=== PATIENT | female | born 1950 | race Caucasian/White ===

== ENCOUNTER 2020-01-06 00:01 | Outpatient (CLI) | payer OTHER, SELFPAY ==
[2020-01-06 18:56] LABS: SARS-CoV-2 RNA PCR Negative
== END 2020-01-06 00:02 | disposition home or self-care (01) ==
LOC: ANHCOVIDDT 00:01
PROVIDERS: Visit Provider Internal Medicine Gastroenterology
DX: Z01.818 Encounter for other preprocedural examination (principal); Z11.59 Encounter for screening for other viral diseases; R93.3 Abnormal findings on diagnostic imaging of other parts of digestive tract
CPT/HCPCS: 87635; C9803; U0003

== ENCOUNTER 2020-01-08 00:45 | Day surgery (SDC) | payer OTHER, SELFPAY ==
[2020-01-01 13:49] VITALS: BMI 30.2
[2020-01-08 06:58] VITALS: BP 136/60; PULSE 75; RESP 18; TEMP 36.8; O2SAT 100
[2020-01-08] MEDS: LACTATED RINGERS 1,000 ML 150 ML IV CONT (07:09)
--- NOTE | 2020-01-08 07:10 | WPDANESEPPF ---
Anes - Initial Pre Proc Eval Procedure: Operation Date: 01/08/20 08:00 Proposed Procedures p Esophagogastroduodenoscopy - David Esquivel MD Date/Time: 01/08/20 07:10 Surgeon: David Esquivel MD Pre Op Diagnosis: Gastric Wall Thickening Patient Data Age: 69 Gender: F Height: 1.57 m Weight: 77.4 kg Last Vital Signs Temp 36.8 C 01/08/20 06:58 Pulse 75 01/08/20 06:58 Resp 18 01/08/20 06:58 BP 136/60 01/08/20 06:58 Pulse Ox 100 01/08/20 06:58 Allergies Allergy/AdvReac Type Severity Reaction Status Date / Time No Known Allergies Allergy Unverified 01/01/20 13:41 Home Medications Medication Instructions Recorded Confirmed Type calcium lactate 100 mg PO DAILY 01/01/20 01/01/20 History conj estrog-medroxyprogest emilia 1 tablet PO DAILY 01/01/20 01/01/20 History [Prempro] escitalopram oxalate [Lexapro] 20 mg PO DAILY 01/01/20 01/01/20 History esomeprazole magnesium [Nexium] 20 mg PO DAILY 01/01/20 01/01/20 History magnesium 250 mg PO DAILY 01/01/20 01/01/20 History minocycline 100 mg PO PRN PRN 01/01/20 01/01/20 History osimertinib [Tagrisso] 80 mg PO DAILY 01/01/20 01/01/20 History vitamin D3-vitamin K2 1 tablet PO DAILY 01/01/20 01/01/20 History Patient hx anesthesia problems: none Family hx anesthesia problems: none PMFSH Past Medical History Medical History (Updated 01/08/20 @ 07:12 by Aniket Worley MD) Anxiety Cancer LUNG CANCER DX 07/2016-STAGE 4 Depression Gastroesophageal reflux disease Family History Family History (Updated 01/14/19 @ 11:30 by DOCTOR UNKNOWN) Father Family history of cardiovascular disease Social History Social History Smoking status: Former smoker Smoking end date: 07/16/16 Anes - Eval Final PreProcedure Day of Procedure 01/08/20 07:10 Patient weight: obese Heart: regular rate and rhythm Lungs: clear to auscultation and normal air movement Airway: Mallampati scale class II Neurological: alert and oriented Last oral intake: >/= 8 hours ASA classification: III Emergent: no Anesthetic plan: proceed Anesthesia type and monitoring: general GIVS Informed Consent: The patient's anesthetic plan and its attendant risks and benefits were discussed with the patient/family/POA. Questions were solicited and answers provided to the satisfaction of the patient/family/POA.
[2020-01-08] MEDS: BENZOCAINE (*SP) 60 ML SPRAY CAN (HURRICAINE) 1 SPRAY MUCOUS MEM (08:06)
--- NOTE | 2020-01-08 08:12 | WPDGICN ---
Assessment and Plan Assessment and plan (1) Gastroesophageal reflux disease: Code(s): K21.9 - Gastro-esophageal reflux disease without esophagitis Status: Acute Assessment and Plan: long history of GE reflux disease. Currently stable on Nexium. This will be evaluated EGD. Plan to continue Nexium for now. (2) Abnormal CT scan, gastrointestinal tract: Code(s): R93.3 - Abnormal findings on diagnostic imaging of other parts of digestive tract Status: Acute Assessment and Plan: Recent CT scan suggests thickening of gastric body. This will be evaluated by EGD. (3) Cancer: Code(s): C80.1 - Malignant (primary) neoplasm, unspecified Status: Acute Assessment and Plan: Patient known to have lung cancer followed at [facility]. Will continue to follow their subsequently. GI Consult Note Consult date/time: 01/08/20 08:12 HPI: Brittnee Ni is a 69 year old female Seen in evaluation at the request of Dr. Jacques. Patient also followed by Dr. Jeter, oncology. patient has a history of lung cancer currently being treated at [facility]. She gets interval CT scans. Most recent 1 revealed thickening of the stomach for this reason she is referred for endoscopy. She states that her appetite is good she denies epigastric pain. In the past she has been treated for GE reflux and has been on Nexium for quite some time and this appears to be well controlled. She denies any dysphagia or weight loss. Family history noncontributory. Review of Systems Review of Systems: All systems reviewed & are unremarkable except as noted in HPI and below PMFSH Past Medical History Medical History Anxiety Cancer LUNG CANCER DX 07/2016-STAGE 4 Depression Gastroesophageal reflux disease Family History Family History Father Family history of cardiovascular disease Social History Social History Smoking status: Former smoker Smoking end date: 07/16/16 Meds Home Medications and Allergies Home Medications Medication Instructions Recorded Confirmed Type calcium lactate 100 mg PO DAILY 01/01/20 01/01/20 History conj estrog-medroxyprogest emilia 1 tablet PO DAILY 01/01/20 01/01/20 History [Prempro] escitalopram oxalate [Lexapro] 20 mg PO DAILY 01/01/20 01/01/20 History esomeprazole magnesium [Nexium] 20 mg PO DAILY 01/01/20 01/01/20 History magnesium 250 mg PO DAILY 01/01/20 01/01/20 History minocycline 100 mg PO PRN PRN 01/01/20 01/01/20 History osimertinib [Tagrisso] 80 mg PO DAILY 01/01/20 01/01/20 History vitamin D3-vitamin K2 1 tablet PO DAILY 01/01/20 01/01/20 History Allergies Allergy/AdvReac Type Severity Reaction Status Date / Time No Known Allergies Allergy Unverified 01/01/20 13:41 Vital Signs Vital Signs - 24 hr 01/08/20 06:58 Temperature 36.8 C Pulse Rate 75 Respiratory Rate 18 Blood Pressure 136/60 Pulse Oximetry 100 Exam Narrative: Exam Narrative: Physical exam reveals patient to be alert. Vital signs stable. HEENT exam unremarkable. Lungs are clear to auscultation and percussion. Heart is without murmur or extra sounds. Abdominal exam bowel sounds present soft nontender with no hepatosplenomegaly. Digital external rectal exam is deferred.
[2020-01-08 08:13] VITALS: BP 109/49; PULSE 69; RESP 15; O2SAT 97
[2020-01-08 08:23] VITALS: BP 112/66; PULSE 75; RESP 19; O2SAT 96
[2020-01-08 08:33] VITALS: BP 123/65; PULSE 69; RESP 18; O2SAT 100
== END 2020-01-08 08:49 | disposition home or self-care (01) ==
PROVIDERS: PCP Family Medicine; Visit Provider Internal Medicine Gastroenterology
PROC: 0DJ08ZZ Inspection of Upper Intestinal Tract, Via Natural or Artificial Opening Endoscopic (ICD-10-PCS; CPT 43235; principal; 2020-01-08 08:00)
DX: R93.3 Abnormal findings on diagnostic imaging of other parts of digestive tract (principal); K21.9 Gastro-esophageal reflux disease without esophagitis; C34.90 Malignant neoplasm of unspecified part of unspecified bronchus or lung; F41.9 Anxiety disorder, unspecified; F32.9 Major depressive disorder, single episode, unspecified; Z87.891 Personal history of nicotine dependence; Z79.899 Other long term (current) drug therapy
CPT/HCPCS: 43239; 87081; J2001; J2704; J7120